=== PATIENT | female | born 1970 | race Caucasian/White ===

== ENCOUNTER 2019-06-28 12:59 | Outpatient (CLI) | payer BC, MEDICAID, SELFPAY | END 2019-06-28 13:00 | disposition home or self-care (01) | DX: E03.9 Hypothyroidism, unspecified (principal) | CPT/HCPCS: 36415; 84443 ==

== ENCOUNTER 2019-12-27 15:30 | Outpatient (RCR) | payer OTHER, SELFPAY ==
--- NOTE | 2019-11-27 09:16 | OTOPEVAL ---
OCCUPATIONAL THERAPY EVALUATION 11/27/2019 Thank you for referring Xiomara Cristobal to [facility].? The patient is scheduled to be seen for therapy? 2x/week for 4 weeks. Please review, sign, date and return this plan of care JING. I agree with and certify that the following plan of care is medically necessary. Referring Physician Date Referring Provider: Esequiel Pérez MD *OT Outpatient Evaluation Therapy Assessment Status Assessment Status Assessment Status Evaluation Outpatient Past Medical History Past Medical History Source of Past Medical History Patient Neurological History Hx Neurological Disorders No Significant History Cardiovascular History Hx Hypertension Yes Respiratory History Hx Respiratory Disorders No Significant History Gastrointestinal History Hx Gastrointestinal Disorders No Significant History Genitourinary History Hx Genitourinary Disorders No Significant History Musculoskeletal History Hx Arthritis Yes Hx Orthopedic Surgery Yes: LRTI procedure, right [facility] Other History Hx Other Surgeries Yes Evaluation Information Problem Diagnosis s/p LRTI procedure (R) thumb [facility] Onset Oct 14, 2019 Subjective Information Patient reports having Query Text:As Reported By Patient/ difficulties using the right Family hand to button and open jars. She states her is helping with gripping and pinching tasks at this time. She also notes that she is having the same procedure done on her left thumb on 11/30/19. Prior Level of Function Activity Level (Last 3 Months) Occupation Not working right now Hand Dominance Right Activity of Daily Living Ability Independent Indoor/Home Mobility Independent Community Mobility Independent Cooking Yes Cleaning Yes Laundry Yes Shopping Yes Driving Yes Pain Assessment Timing of Pain Assessment Timing of Pain Assessment Assessment Pain Scale Pain Scale Used Numeric (1 - 10) Self Report Pain Assessment Right Thumb(s) Reported Pain Level 2 Pain Description Aching,Dull Pain Frequency Continuous Lowest Pain Intensity 1 Greatest Pain Intensity 3 Other Pain Aggravating Factors gripping and pinching Pain Score Pain Score 2: Self Report Upper Extremity Range of Motion Wrist Range of Motion Left Wrist Flexion - Active 70 Wrist Extension - Active 65 Wrist Radial Deviation - Active 20
--- NOTE | 2019-12-05 08:01 | PCOTNOTE ---
Patient called and cancelled tx today due to having to take a family member to a MD appt.
--- NOTE | 2019-12-28 08:34 | PCOTNOTE ---
Patient cancelled OT re-evaluation tomorrow, 12/29/19. Will need to reschedule.
--- NOTE | 2020-01-09 12:49 | OTOPEVAL ---
OCCUPATIONAL THERAPY DISCHARGE NOTE 01/09/2020 Xiomara participated in the initial evaluation on 11/27/2019 and 4 subsequent treatment sessions. She has been instructed in AROM and strengthening with resistive putty. She is independent in all instructed materials and was making excellent progress during her sessions. Her pain would range from 0/10 to 3/10 post therapy sessions. She called & cancelled her re-evaluation on 12/28/2019 and did not reschedule. Called the patient today who states her right thumb is fine and she feels as though she is ready to be discharged. No formal re-assessment completed. Thank you for referring Xiomara Cristobal to [facility]. Please review, sign, date and return this discharge note JING. I agree with and certify that the following plan of care is medically necessary. Referring Physician Date Referring Provider: Esequiel Pérez MD
== END 2020-01-10 14:29 | disposition home or self-care (01) ==
LOC: ANHOT 15:30
DX: M13.841 Other specified arthritis, right hand (principal)
CPT/HCPCS: 97018; 97110; 97140; 97165